=== PATIENT | male | born 1995 | race Caucasian/White ===

== ENCOUNTER 2023-08-22 19:18 | Inpatient (IN) | payer SELFPAY ==
[2023-08-22 19:19] VITALS: BP 125/80; PULSE 82; RESP 17; O2SAT 100; BMI 19.8
--- NOTE | 2023-08-22 19:25 | W.ED.PSYCHS ---
HPI - Psych General: Chief Complaint: Psychiatric Symptoms Stated Complaint: behavioral issue Time Seen by Provider: 08/22/23 19:20 Source: patient Mode of arrival: ambulatory Limitations: no limitations History of Present Illness: 27-year-old male who sent a message that police had read and stated that he no longer want to live he wanted to kill himself he does have a history depression has had admissions in the past to the [facility]. Patient does admit to being severely depressed he is quite avoidant here will not answer many questions. Associated symptoms: Reports depression and suicidal ideation Review of Systems Const: Denies: fever(s), chills, body aches or change in appetite Eyes: Denies: blurry vision or eye discomfort ENMT: Denies: throat pain or dental pain Card: Denies: chest pain Resp: Denies: dyspnea GI: Denies: abdominal pain, nausea, vomiting or diarrhea Musc: Denies: neck pain or back pain Skin/Breast: Denies: rash Psych: Reports: depression and suicidal ideation [facility] ED PFSH: Medical History Left fibular fracture past history Generalized anxiety disorder Acute constitutional eczema Agoraphobia Surgical History No pertinent past surgical history Family History (Updated 02/27/22 @ 15:35 by Mingo Martinez NP) Unknown Psychiatric illness anxiety/depression Cancer renal carcinoma Diabetes Social History Smoking and tobacco/nicotine status: never used tobacco/nicotine Alcohol intake: never Physical Exam Const: COMMON NORMALS: no acute distress, patient oriented x3 and healthy appearing HENMT: COMMON NORMALS: normocephalic and atraumatic HEAD & SCALP: normocephalic and atraumatic Neck/C-Spine: COMMON NORMALS: full ROM and supple Chest: COMMONS NORMALS: normal inspection of the chest Resp: COMMON NORMALS: normal respiratory effort Cardio: COMMON NORMALS: regular rate RATE: regular rate Extremity: COMMON NORMALS: normal to inspection and full ROM Neuro: COMMON NORMALS: patient oriented x3, moves all extremities and no focal motor deficits Psych: COMMON NORMALS: mental status grossly normal, Normal thought process present and cooperative MOOD & AFFECT: Yes depressed mood THOUGHT PROCESS: Normal thought process present Skin: COMMON NORMALS: no rashes or lesions noted and no wounds GENERAL SKIN EXAM: no rashes or lesions noted Course Vital Signs: Vital signs: Vital Signs Pulse Rate 82 08/22/23 19:19 Respiratory Rate 14 08/22/23 21:00 Blood Pressure 125/80 08/22/23 19:19 Pulse Oximetry 100 08/22/23 19:19 Oxygen Delivery Me thod Room Air 08/22/23 19:19 MDM - Psych Medical Decision Making Patient presents for suicidal ideation along with depression he was placed on a 96-hour hold I did speak to Dr. Norton and will admit at this time. Medical Records I reviewed the patient's medical records. Lab Data I reviewed the patient's lab results. 08/22/23 19:40 08/22/23 19:40 Laboratory Results WBC 8.09 10^3/uL (3.29-11.43) 08/22/23 19:40 RBC 5.73 10^6/uL (3.85-5.65) H 08/22/23 19:40 Hgb 17.00 g/dL (11.27-16.99) H 08/22/23 19:40 Hct 51.5 % (37-53) 08/22/23 19:40 MCV 89.9 fl (82-101) 08/22/23 19:40 MCH 29.7 pg (27-33) 08/22/23 19:40 MCHC 33.0 g/dL (30-55) 08/22/23 19:40 RDW 11.9 % (12.1-15.1) L 08/22/23 19:40 Plt Count 308 10^3/cmm (157-399) 08/22/23 19:40 MPV 9.1 fL (7.4-10.4) 08/22/23 19:40 Neut % (Auto) 62.9 % 08/22/23 19:40 Lymph % (Auto) 24.5 % 08/22/23 19:40 Shannon % (Auto) 6.3 % 08/22/23 19:40 Eos % (Auto) 5.2 % 08/22/23 19:40 Baso % (Auto) 0.9 % 08/22/23 19:40 Neut # (Auto) 5.09 10^3/uL (1.8-7.7) 08/22/23 19:40 Lymph # (Auto) 2.0 10^3/uL (0.8-4.8) 08/22/23 19:40 Shannon # (Auto) 0.5 10^3/uL (0.2-0.9) 08/22/23 19:40 Eos # (Auto) 0.4 10^3/uL (0.0-0.8) 08/22/23 19:40 Baso # (Auto) 0.1 10^3/uL (0.0-0.1) 08/22/23 19:40 Nucleated RBC % (auto) 0 % 08/22/23 19:40 Nucleated RBCs # 0.0 /100WBC 08/22/23 19:40 Sodium 142 mmol/L (136-145) 08/22/23 19:40 Potassium 3.8 mmol/L (3.5-5.1) 08/22/23 19:40 Chloride 104 mmol/L (98-107) 08/22/23 19:40 Carbon Dioxide 30 mmol/L (22-29) H 08/22/23 19:40 Anion Gap 11.8 (5-19) 08/22/23 19:40 BUN 11 mg/dL (6-20) 08/22/23 19:40 Creatinine 0.9 mg/dL (0.7-1.2) 08/22/23 19:40 GFR Calculation 101.2 mL/min (90-130) 08/22/23 19:40 Glucose 81 mg/dL (65-115) 08/22/23 19:40 Calculated Osmolality 292 mOsm/kg (285-295) 08/22/23 19:40 Calcium 9.3 mg/dL (8.5-10.5) 08/22/23 19:40 Total Bilirubin 0.4 mg/dL (0.15-1.2) 08/22/23 19:40 AST 19 U/L (0-40) 08/22/23 19:40 ALT 14 U/L (0-41) 08/22/23 19:40 Alkaline Phosphatase 79 U/L (40-130) 08/22/23 19:40 Total Protein 7.4 g/dL (6.6-8.7) 08/22/23 19:40 Albumin 4.3 g/dL (3.5-5.2) 08/22/23 19:40 Globulin 3.1 g/dL (1.3-4.6) 08/22/23 19:40 Salicylates < 0.3 mg/dL (3-10) L 08/22/23 19:40 Acetaminophen < 5.0 ug/mL (10-30) L 08/22/23 19:40 Ethyl Alcohol < 10 mg/dL (0-10) 08/22/23 19:40 No radiology studies performed this visit Discharge Plan Discharge Patient Disposition: Admitted As Inpatient Admit Provider: Tucker Norton Clinical Impression: Suicidal ideation Condition: Stable Coding Level of Care Code ED Agriculture Inspector for Richard Hammer
[2023-08-22 19:51] LABS: Basophils # 0.1 10^3/uL (0.0-0.1); Basophils % 0.9 %; Eosinophils # 0.4 10^3/uL (0.0-0.8); Eosinophils % 5.2 %; Hematocrit 51.5 % (37-53); Lymphocytes % 24.5 %; Mean Corpuscular Hemoglobin 29.7 pg (27-33); Mean Corpuscular Volume 89.9 fl (82-101); Mean Platelet Volume 9.1 fL (7.4-10.4); Monocytes # 0.5 10^3/uL (0.2-0.9); Monocytes % 6.3 %; Neutrophils # 5.09 10^3/uL (1.8-7.7); Neutrophils % 62.9 %; Nucleated Red Blood Cells % 0 %; Platelet Count 308 10^3/cmm (157-399); Red Blood Count 5.73 10^6/uL (3.85-5.65); Red Cell Distribution Width 11.9 % (12.1-15.1); White Blood Count 8.09 10^3/uL (3.29-11.43)
--- NOTE | 2023-08-22 19:53 | PC.NURSE ---
96 Hour Involuntary Hold Patient Rights have been read to the patient and a copy of the same has been given to him. Manager Of Financial Planning Bette Villa and [place] [employer] Officer was present at bedside at the time of presentation.
[2023-08-22 20:07] LABS: Alanine Aminotransferase 14 U/L (0-41); Albumin Level 4.3 g/dL (3.5-5.2); Alkaline Phosphatase 79 U/L (40-130); Anion Gap 11.8 (5-19); Aspartate Amino Transferase 19 U/L (0-40); Blood Urea Nitrogen 11 mg/dL (6-20); Calcium 9.3 mg/dL (8.5-10.5); Carbon Dioxide 30 mmol/L (22-29); Chloride 104 mmol/L (98-107); Globulin 3.1 g/dL (1.3-4.6); Glomerular Filtration Rate 101.2 mL/min (90-130); Glucose 81 mg/dL (65-115); Osmolality Calculated 292 mOsm/kg (285-295); Potassium 3.8 mmol/L (3.5-5.1); Sodium 142 mmol/L (136-145); Total Bilirubin 0.4 mg/dL (0.15-1.2); Total Protein 7.4 g/dL (6.6-8.7)
[2023-08-22 20:08] LABS: Acetaminophen < 5.0 ug/mL (10-30); Alcohol Level < 10 mg/dL (0-10); Salicylate < 0.3 mg/dL (3-10)
[2023-08-22 21:00] VITALS: RESP 14
[2023-08-22 22:05] VITALS: RESP 16
[2023-08-22 22:23] VITALS: BP 124/84; PULSE 75; RESP 18; TEMP 36.7; O2SAT 99
--- NOTE | 2023-08-22 23:12 | PC.ADMIT ---
[address] Admission Note: The patient,Gavin Gray,27 y/o, was given written information regarding hospital policies, unit procedures and contact persons. Patient's smoking status: never smoked.SMOKES 1 PACK A DAY Vital Signs - 8 hr 08/22/23 19:19 08/22/23 21:00 08/22/23 22:05 Temperature Pulse Rate 82 Respiratory Rate 17 14 16 Blood Pressure 125/80 Pulse Oximetry 100 Oxygen Delivery Method Room Air 08/22/23 22:23 08/22/23 22:56 Temperature 98.0 F Pulse Rate 75 Respiratory Rate 18 Blood Pressure 124/84 Pulse Oximetry 99 Oxygen Delivery Method Room Air Room Air ADMITTED FROM ER VIA WHEELCHAIR AND SECURITY AT 2155. PT IS ON A 96 HOUR HOLD THAT ENDS ON 08/28/23 AT 1918. PT STATES HE SHOULD NOT BE HERE AND IS AGITATED AND REFUSES TO DRESS OUT OF COMPLETE ASSESSMENTS. PT DID FINALY CALM WHEN GIVEN CHOICES AND HE DID DECIDE TO PARTICIPATE. PT STATES HE IS HERE BECAUSE I WOKE UP AND THE POLICE WERE IN MY HOUSE SAYING I WAS SUICIDAL AND I'M NOT, PT DENIES SI/HI AND AVH AT THIS TIME. RATES ANXIETY 8/10 AND DEPRESSION 7/10. PT REPORTS HE TAKES CLONAZEPAM 0.5 MG PO BID, PRESCRIPTION WAS VERIFIED AND IT IS ACTIVE. NEW ORDERS TO RESTART WERE GIVEN FROM DR. FUNK. PT REPORTS BUSPAR ALLERGY AND USES [facility]. PT REPORTS AMPHETAMINE USE SINCE AGE OF 5 THAT WAS PRESCRIBED FOR ADHD AND REPORTS HE IS NO LONGER PRESCRIBED THIS MEDICATION BUT DOES ADMIT TO SELF MEDICATING WITH METHAMPHETAMINES. PT STATES HE IS FEARFUL ABOUT CONTINUING THIS SINCE YOU NEVER KNOW WHAT YOUR GONNA GET, AND ITS SCARY. SKIN ASSESSMENT REVEALS PT HAS SMALL RAISED, RED PUSTULES ALL OVER HIS BODY, WITH HIS BACK AND ABDOMEN BEING THE WORST. PT IS OBSERVED HAVING DRIED UP SCABS ON BILATERAL LEGS WELL. PT STATED HE CAME TO THE HOSPITAL TO GET HELP FOR THE SKIN LESIONS BUT NO ONE WILL TEST ME FOR ANYTHING OR GIVE ME MEDICINE. PT WAS ASSURED DR. FUNK WILL BE NOTIFIED AND HE WILL ALSO DO A HISTORY AND PHYSICAL TOMORROW. PT WAS ORIENTATED TO UNIT, SAFETY RULES AND GUIDELINES VERBALIZED UNDERSTANDING. ALL QUESTIONS WERE ANSWERED AND SUPPORT WAS VOICED.
[2023-08-22] MEDS: CLONazepam 0.5 mg Tablet PO (23:39)
[2023-08-23 06:00] VITALS: BP 112/75; PULSE 60; RESP 20
[2023-08-23] MEDS: CLONazepam 0.5 mg Tablet PO ×2 (09:05→20:15)
--- NOTE | 2023-08-23 12:41 | W.PM.NPUH&PS ---
Providers/Chief Complaint Admitting Physician: Tucker Norton MD Chief Complaint: behavioral issue HPI NPU History of Present Illness Gavin Gray is a 27 year old male who presented to the ED with the following report: Chief Complaint: Psychiatric Symptoms Stated Complaint: behavioral issue Time Seen by Provider: 08/22/23 19:20 Source: patient Mode of arrival: ambulatory Limitations: no limitations History of Present Illness: 27-year-old male who sent a message that police had read and stated that he no longer want to live he wanted to kill himself he does have a history depression has had admissions in the past to the [facility]. Patient does admit to being severely depressed he is quite avoidant here will not answer many questions. Associated symptoms: Reports depression and suicidal ideation. He was admitted to the neuropsychiatric unit for definitive treatment of those issues. CHIEF COMPLAINT Patient had a bad day, turned off his phone, and woke up to the police in his house. He was upset and angry about the situation. HISTORY OF THE PRESENT COMPLAINT The patient reported having a bad day prior to the current visit, which led to an incident involving the police. The patient expressed feelings of frustration and anger about the situation, which he described as a misunderstanding. He mentioned feeling upset and guilty for wasting the police's time. The patient reported that he had turned off his phone and went to sleep, only to wake up to the police in his house. He expressed a strong dislike for this situation. The patient reported feeling generally stable but admitted to not being a happy person upon waking up. He mentioned having been on medication since he started school, including Xanax, which he reported had a negative impact on his school performance and led to him dropping out. He also mentioned having been on Concerta and other types of uppers during school. He reported self-medicating with methamphetamine, which he said made him feel like he wanted to do things rather than just lay around. The patient reported experiencing brain zaps from certain medications, including bupropion and Lexapro. He also mentioned that he smokes about a pack of cigarettes a day, depending on his stress levels. He reported using cannabis daily and having used cocaine and methamphetamine in the past. He denied any current use of opiates. The patient reported having lost his job a year ago after his doctor took him off Xanax. He described the past year as being characterized by fear and social isolation, with a gradual return to limited social interactions with friends. He reported experiencing significant anxiety when faced with the prospect of going out to eat or engaging in other social activities. The patient reported being currently on Klonopin, prescribed by his primary care physician. He expressed a desire to continue with this medication and to work on his social anxiety. He reported no current thoughts of self-harm or harm to others, and no hallucinations or delusions. He described his mood as okay. The patient reported a history of ADHD and having been in therapy as a child. He also mentioned having been on medication for ADHD since he started school. He reported having been on Xanax, which he said made his school performance worse and led to him dropping out. He also mentioned having been on Concerta and other types of uppers during school. The patient reported a history of psoriasis, which he described as severe. He expressed frustration and distress about his condition, stating that he had been told he was too poor to receive treatment for it. He reported that his psoriasis was currently very bad and causing him significant discomfort. MENTAL HEALTH HISTORY Patient has a history of ADHD and was on medication since school. He was also on Xanax which initially worsened his condition but later helped with his anxiety. He was taken off Xanax in 2012 and has been struggling since then. He has been on Klonopin since . He has also self-medicated with meth in the past. He has seen a therapist in [place] as a child, likely for his ADHD. SOCIAL HISTORY Patient smokes about a pack a day depending on his stress levels. He does not consume alcohol but uses cannabis daily. He has used cocaine and methamphetamine in the past but not regularly. He has never been to rehab and has no charges. He lost his job a year ago due to withdrawal from Xanax. He lives in a house built by him and his mother. Meds NPU Home Medications Medication Instructions Recorded Confirmed Last Taken Type clonazepam 0.5 mg tablet (Klonopin) 0.5 mg PO BID 08/22/23 08/22/23 Unknown History clonazepam 0.5 mg tablet 0.5 mg PO BID 08/23/23 08/23/23 Unknown History Allergies Allergy/AdvReac Type Severity Reaction Status Date / Time buspirone [From BuSpar] Allergy brain zaps Verified 02/27/22 15:26 [facility] NPU PFSH: Medical History Left fibular fracture past history Generalized anxiety disorder Acute constitutional eczema Agoraphobia Surgical History No pertinent past surgical history Family History (Updated 02/27/22 @ 15:35 by Mingo Martinez NP) Unknown Psychiatric illness anxiety/depression Cancer renal carcinoma Diabetes Social History Smoking and tobacco/nicotine status: never used tobacco/nicotine Alcohol intake: never Mental Status Exam MSE Comments: This is a slender white male who appeared his stated age in hospital scrubs with limited grooming and eye contact. There was no evidence of any abnormal involuntary motor movements tics or tremors appreciated. There was some psychomotor retardation. He was cooperative with exam in mild to moderate distress on interview. Speech was increased rate and normal volume. His mood was described as anxious. His affect was congruent. His thought process appeared organized. His thought content showed no evidence of homicidal or suicidal ideation, there were no delusions reported or noted, he denied any auditory or visual hallucinations. Attention and concentration appeared intact and memory appeared reliable but none were formally tested. He is alert and oriented x 3. His insight is limited. His judgment is poor. His impulse control appeared impaired. Vitals/I&O/Wt Last Vital Signs Temp 98.0 F 08/22/23 22:23 Pulse 60 08/23/23 06:00 Resp 20 H 08/23/23 06:00 BP 112/75 08/23/23 06:00 Pulse Ox 99 08/22/23 22:23 O2 Del Method Room Air 08/22/23 22:56 Weight last 48 hrs Weight 58.967 kg Data NPU 08/22/23 19:40 08/22/23 19:40 A&P Assessment and plan (1) Agoraphobia: (2) Generalized anxiety disorder: (3) Suicidal ideation: Plan This is a 27-year-old white male with a long history of benzodiazepine use versus abuse, significant anxiety and recent psychosocial stressors here on a 96-hour hold. 1. Evaluate for additional medication options. 2. Continue every 15 minute checks for safety. 3. Encourage individual, group and milieu therapy. 4. Encourage sober living treatment after discharge at the highest level care to which she is willing to commit. 5. Evaluate for safety for 96-hour hold. Involuntary Hold Information 96 Hour Hold: 96 Hour Involuntary Admission: Yes 96 Hour Hold Ending Date: 08/28/23 96 Hour Hold Ending Time: 19:18 Attestations NPU Medical Necessity Statement*: Inpatient hospitalization is medically necessary and the clinically appropriate intervention at this time. We will monitor/initiate medications and make changes as indicated. He will be in the hospital for over 2 midnights. Likely length of stay 3-5 days. Coding Level of Care Code Acute Code for Chg Fwd Diagnoses Agoraphobia F40.00 Generalized anxiety disorder F41.1 Suicidal ideation R45.851
[2023-08-23 14:00] VITALS: BP 86/55; PULSE 95; RESP 16; TEMP 36.4; O2SAT 96
[2023-08-23 14:55] LABS: Amphetamines Screen Urine Positive (Negative); Barbiturates Screen Urine Negative (Negative); Benzodiazepines Screen Urine Negative (Negative); Cocaine Screen Urine Positive (Negative); Opiate Screen Urine Negative (Negative); PCP Screen Urine Negative (Negative); THC Screen Urine Positive (Negative)
[2023-08-23 20:37] VITALS: BP 103/60; PULSE 69; RESP 16; TEMP 36.9; O2SAT 98
[2023-08-24 06:00] VITALS: BP 87/50; PULSE 60; RESP 16; O2SAT 98
[2023-08-24] MEDS: CLONazepam 0.5 mg Tablet PO ×2 (08:48→17:41)
[2023-08-24 14:00] VITALS: BP 98/52; PULSE 80; RESP 16; TEMP 36.6; O2SAT 98
--- NOTE | 2023-08-24 15:01 | P.NPUPN_ITS ---
Subjective NPU 2 Subjective: Patient presented today reporting that he is feeling better in general. We were able to speak with his mother and she agreed that he was doing better and she felt he will be safe for her to take home. He continued to report being ready to start facing some of the challenges and excepting that he just needed to manage them without things like Xanax and larger doses. We discussed discharge in the morning. Mental Status Exam 2 MSE Comments: This is a slender white male who appeared his stated age in hospital scrubs with limited grooming and eye contact. There was no evidence of any abnormal involuntary motor movements tics or tremors appreciated. There was some psychomotor retardation. He was cooperative with exam in no acute on interview. Speech was increased rate and normal volume. His mood was described as anxious but better. His affect was congruent. His thought process appeared organized. His thought content showed no evidence of homicidal or suicidal ideation, there were no delusions reported or noted, he denied any auditory or visual hallucinations. Attention and concentration appeared intact and memory appeared reliable but none were formally tested. He is alert and oriented x 3. His insight is limited. His judgment is intact. His impulse control appeared improving. Vitals/I&O/Wt Last Vital Signs Temp 97.9 F 08/24/23 14:00 Pulse 80 08/24/23 14:00 Resp 16 08/24/23 14:00 BP 98/52 08/24/23 14:00 Pulse Ox 98 08/24/23 14:00 O2 Del Method Room Air 08/24/23 14:00 Weight last 48 hrs Weight 58.967 kg Data NPU 08/22/23 19:40 08/22/23 19:40 A&P Assessment and plan (1) Agoraphobia: (2) Generalized anxiety disorder: (3) Suicidal ideation: Plan This is a 27-year-old white male with a long history of benzodiazepine use versus abuse, significant anxiety and recent psychosocial stressors here on a 96-hour hold. 1. Evaluate for additional medication options. 2. Continue every 15 minute checks for safety. 3. Encourage individual, group and milieu therapy. 4. Encourage sober living treatment after discharge at the highest level care to which she is willing to commit. 5. Evaluate for safety for 96-hour hold. Spoke with mother who identifies that she agrees he will be safe and we discussed discharge in the morning. Involuntary Hold Information 2 96 Hour Hold: 96 Hour Involuntary Admission: Yes 96 Hour Hold Ending Date: 08/28/23 96 Hour Hold Ending Time: 19:18 Attestations NPU 2 Medical Necessity Statement*: Inpatient hospitalization is medically necessary and the clinically appropriate intervention at this time. We will monitor/initiate medications and make changes as indicated. Likely length of stay 1-3 days. Coding Level of Care Code Acute Code for Chg Fwd Diagnoses Agoraphobia F40.00 Generalized anxiety disorder F41.1 Suicidal ideation R45.851
[2023-08-24] MEDS: nicotine 2 mg Gum BUCCAL ×2 (15:48→17:54)
--- NOTE | 2023-08-24 20:36 | PC.NURSE ---
Attempted to obtain vitals from patient. Patient was being non compliant and shook his head no
[2023-08-25] MEDS: nicotine 2 mg Gum BUCCAL ×3 (05:12→10:21)
[2023-08-25 06:00] VITALS: RESP 16
[2023-08-25] MEDS: CLONazepam 0.5 mg Tablet PO (08:27)
--- NOTE | 2023-08-25 08:38 | W.PM.NPUDCS ---
Diagnoses at Discharge Discharge Diagnosis (1) Agoraphobia: Status: Acute (2) Generalized anxiety disorder: Status: Acute (3) Suicidal ideation: Status: Resolved Reason for Visit Reason for Visit: behavioral issue Brief History: History of Present Illness Gavin Gray is a 27 year old male who presented to the ED with the following report: Chief Complaint: Psychiatric Symptoms Stated Complaint: behavioral issue Time Seen by Provider: 08/22/23 19:20 Source: patient Mode of arrival: ambulatory Limitations: no limitations History of Present Illness: 27-year-old male who sent a message that police had read and stated that he no longer want to live he wanted to kill himself he does have a history depression has had admissions in the past to the psych hoyt. Patient does admit to being severely depressed he is quite avoidant here will not answer many questions. Associated symptoms: Reports depression and suicidal ideation. He was admitted to the neuropsychiatric unit for definitive treatment of those issues. CHIEF COMPLAINT Patient had a bad day, turned off his phone, and woke up to the police in his house. He was upset and angry about the situation. HISTORY OF THE PRESENT COMPLAINT The patient reported having a bad day prior to the current visit, which led to an incident involving the police. The patient expressed feelings of frustration and anger about the situation, which he described as a misunderstanding. He mentioned feeling upset and guilty for wasting the police's time. The patient reported that he had turned off his phone and went to sleep, only to wake up to the police in his house. He expressed a strong dislike for this situation. The patient reported feeling generally stable but admitted to not being a happy person upon waking up. He mentioned having been on medication since he started school, including Xanax, which he reported had a negative impact on his school performance and led to him dropping out. He also mentioned having been on Concerta and other types of uppers during school. He reported self-medicating with methamphetamine, which he said made him feel like he wanted to do things rather than just lay around. The patient reported experiencing brain zaps from certain medications, including bupropion and Lexapro. He also mentioned that he smokes about a pack of cigarettes a day, depending on his stress levels. He reported using cannabis daily and having used cocaine and methamphetamine in the past. He denied any current use of opiates. The patient reported having lost his job a year ago after his doctor took him off Xanax. He described the past year as being characterized by fear and social isolation, with a gradual return to limited social interactions with friends. He reported experiencing significant anxiety when faced with the prospect of going out to eat or engaging in other social activities. The patient reported being currently on Klonopin, prescribed by his primary care physician. He expressed a desire to continue with this medication and to work on his social anxiety. He reported no current thoughts of self-harm or harm to others, and no hallucinations or delusions. He described his mood as okay. The patient reported a history of ADHD and having been in therapy as a child. He also mentioned having been on medication for ADHD since he started school. He reported having been on Xanax, which he said made his school performance worse and led to him dropping out. He also mentioned having been on Concerta and other types of uppers during school. The patient reported a history of psoriasis, which he described as severe. He expressed frustration and distress about his condition, stating that he had been told he was too poor to receive treatment for it. He reported that his psoriasis was currently very bad and causing him significant discomfort. MENTAL HEALTH HISTORY Patient has a history of ADHD and was on medication since school. He was also on Xanax which initially worsened his condition but later helped with his anxiety. He was taken off Xanax in 2012 and has been struggling since then. He has been on Klonopin since . He has also self-medicated with meth in the past. He has seen a therapist in [place] as a child, likely for his ADHD. SOCIAL HISTORY Patient smokes about a pack a day depending on his stress levels. He does not consume alcohol but uses cannabis daily. He has used cocaine and methamphetamine in the past but not regularly. He has never been to rehab and has no charges. He lost his job a year ago due to withdrawal from Xanax. He lives in a house built by him and his mother. Hospital Course Hospital Course He acclimated to the individual, group and milieu therapies provided. Patient presented with significant anxiety and challenges with psychosocial stressors. He endorsed an extensive history of benzodiazepine use but was honest about its helping his anxiety but probably stunting his functional development. He presented on 0.5 mg p.o. twice daily of Klonopin which we continued while he was in the hospital. He initially had some desire to possibly change or increase that medication but was able to process his need for more intense therapy surrounding his [place] phobic tendencies and functional disability as far as being an adult. We discussed the crisis stabilization unit and utilizing outpatient resources when he discharges. He worked with the social work team to find appropriate aftercare. Plan was for him to get his second injection at the crisis stabilization center. He had noteworthy improvement during the hospitalization and he was able to contract for safety outside the hospital prior to discharge. During the hospitalization, patient had routine laboratory studies which were within normal limits except for few outliers. Additionally there was a general medical evaluation which was also within normal limits and revealed no new acute processes. Discharge Summary: At the time of discharge, he denied psychosis or lethality. Mood and anxiety were well managed. Patient endorsed a plan to avoid all drugs of abuse and follow-up with the aftercare recommendations of the treatment team. Patient was evaluated and deemed to be absent credible lethality, and had achieved the maximum benefit from an inpatient hospitalization, so was discharged. Involuntary Hold Information 96 Hour Hold: 96 Hour Involuntary Admission: Yes 96 Hour Hold Ending Date: 08/28/23 96 Hour Hold Ending Time: 19:18 Mental Status Exam MSE Comments: This is a slender white male who appeared his stated age in hospital scrubs with limited grooming and eye contact. There was no evidence of any abnormal involuntary motor movements tics or tremors appreciated. There was some psychomotor retardation. He was cooperative with exam in no acute on interview. Speech was increased rate and normal volume. His mood was described as better. His affect was congruent. His thought process appeared organized. His thought content showed no evidence of homicidal or suicidal ideation, there were no delusions reported or noted, he denied any auditory or visual hallucinations. Attention and concentration appeared intact and memory appeared reliable but none were formally tested. He is alert and oriented x 3. His insight is limited. His judgment is intact. His impulse control appeared improving. Discharge Data Studies Completed and Pending: Laboratory Results WBC 8.09 10^3/uL (3.2 9-11.43) 08/22/23 19:40 RBC 5.73 10^6/uL (3.8 5-5.65) H 08/22/23 19:40 Hgb 17.00 g/dL (11.27 -16.99) H 08/22/23 19:40 Hct 51.5 % (37-53) 08/22/23 19:40 MCV 89.9 fl (82-101) 08/22/23 19:40 MCH 29.7 pg (27-33) 08/22/23 19:40 MCHC 33.0 g/dL (30-55) 08/22/23 19:40 RDW 11.9 % (12.1-15.1 ) L 08/22/23 19:40 Plt Count 308 10^3/cmm (157 -399) 08/22/23 19:40 MPV 9.1 fL (7.4-10.4) 08/22/23 19:40 Neut % (Auto) 62.9 % 08/22/23 19:40 Lymph % (Auto) 24.5 % 08/22/23 19:40 [place] % (Auto) 6.3 % 08/22/23 19:40 Eos % (Auto) 5.2 % 08/22/23 19:40 Baso % (Auto) 0.9 % 08/22/23 19:40 Neut # (Auto) 5.09 10^3/uL (1.8 -7.7) 08/22/23 19:40 Lymph # (Auto) 2.0 10^3/uL (0.8- 4.8) 08/22/23 19:40 [place] # (Auto) 0.5 10^3/uL (0.2- 0.9) 08/22/23 19:40 Eos # (Auto) 0.4 10^3/uL (0.0- 0.8) 08/22/23 19:40 Baso # (Auto) 0.1 10^3/uL (0.0- 0.1) 08/22/23 19:40 Nucleated RBC % (a uto) 0 % 08/22/23 19:40 Nucleated RBCs # 0.0 /100WBC 08/22/23 19:40 Sodium 142 mmol/L (136-1 45) 08/22/23 19:40 Potassium 3.8 mmol/L (3.5-5 .1) 08/22/23 19:40 Chloride 104 mmol/L (98-10 7) 08/22/23 19:40 Carbon Dioxide 30 mmol/L (22-29) H 08/22/23 19:40 Anion Gap 11.8 (5-19) 08/22/23 19:40 BUN 11 mg/dL (6-20) 08/22/23 19:40 Creatinine 0.9 mg/dL (0.7-1. 2) 08/22/23 19:40 GFR Calculation 101.2 mL/min (90- 130) 08/22/23 19:40 Glucose 81 mg/dL (65-115) 08/22/23 19:40 Calculated Osmolal ity 292 mOsm/kg (285- 295) 08/22/23 19:40 Calcium 9.3 mg/dL (8.5-10 .5) 08/22/23 19:40 Total Bilirubin 0.4 mg/dL (0.15-1 .2) 08/22/23 19:40 AST 19 U/L (0-40) 08/22/23 19:40 ALT 14 U/L (0-41) 08/22/23 19:40 Alkaline Phosphata se 79 U/L (40-130) 08/22/23 19:40 Total Protein 7.4 g/dL (6.6-8.7 ) 08/22/23 19:40 Albumin 4.3 g/dL (3.5-5.2 ) 08/22/23 19:40 Globulin 3.1 g/dL (1.3-4.6 ) 08/22/23 19:40 Salicylates < 0.3 mg/dL (3-10 ) L 08/22/23 19:40 Urine Opiates Scre en Negative ng/mL (N egative) 08/22/23 14:25 Acetaminophen < 5.0 ug/mL (10-3 0) L 08/22/23 19:40 Ur Barbiturates Sc reen Negative ng/mL (N egative) 08/22/23 14:25 Ur Phencyclidine S crn Negative ng/mL (N egative) 08/22/23 14:25 Ur Amphetamines Sc reen Positive ng/mL (N egative) H 08/22/23 14:25 U Benzodiazepines Scrn Negative ng/mL (N egative) 08/22/23 14:25 Urine Cocaine Scre en Positive ng/mL (N egative) H 08/22/23 14:25 U Marijuana (THC) Screen Positive ng/mL (N egative) H 08/22/23 14:25 Ethyl Alcohol < 10 mg/dL (0-10) 08/22/23 19:40 Vitals: Last Vital Signs Temp 97.9 F 08/24/23 14:00 Pulse 80 08/24/23 14:00 Resp 16 08/25/23 06:00 BP 98/52 08/24/23 14:00 Pulse Ox 98 08/24/23 14:00 O2 Del Method Room Air 08/24/23 14:00 Discharge Plan Discharge Patient Disposition: Home Condition: Stable Prescriptions: Continued Klonopin 0.5 mg tablet 0.5 mg PO BID Discontinued clonazepam 0.5 mg tablet 0.5 mg PO BID Discharge Orders: Discharge Order (Routine); Ordered 08/25/23 Ordered By: Tucker Norton Referrals: [facility] [Outside] - 08/30/23 8:30 am (Initial assessment for [facility] with Son) Jim Carter, [Staff Physician] - Discharge Diet: Regular Discharge Activity: Resume usual activity Patient Instructions: Depression, Help Prevent Suicide (DC), Opioid Safety Discharge Attestations NPU Time Spent in Discharge Care*: less than 30 min Specific Discharge Activities: Specific discharge activities: educating patient, discussing with case liner/social workers/dc planners, documenting/other paperwork and evaluating patient/reviewing data Coding Level of Care Code Acute Code for Chg Fwd Diagnoses Agoraphobia F40.00 Generalized anxiety disorder F41.1 Suicidal ideation R45.851
[2023-08-25 08:40] VITALS: RESP 16
== END 2023-08-25 10:58 | disposition home or self-care (01) | DRG 880 ==
LOC: ER 20:00 → NP 21:11
PROVIDERS: Admitting Provider Psychiatry & Neurology Psychiatry; Emergency Provider Emergency Medicine; Visit Provider Psychiatry & Neurology Psychiatry
DX: F41.1 Generalized anxiety disorder (principal); R45.851 Suicidal ideations; F40.00 Agoraphobia, unspecified; F17.210 Nicotine dependence, cigarettes, uncomplicated; F12.90 Cannabis use, unspecified, uncomplicated; Z86.59 Personal history of other mental and behavioral disorders; F15.11 Other stimulant abuse, in remission; F14.91 Cocaine use, unspecified, in remission; Z65.9 Problem related to unspecified psychosocial circumstances
CPT/HCPCS: 36415; 80053; 80306; 80307; 85025; 97165; 99285